=== PATIENT | male | born 1950 | race Caucasian/White ===

== ENCOUNTER 2023-07-25 05:59 | Day surgery (SDC) | payer OTHER, SELFPAY ==
[2023-07-25] VITALS (8 sets, daily range): BP systolic 127–154; BP diastolic 54–91; BMI 43.7
[2023-07-25 06:52] LABS: Hematocrit 44.6 % (39.0-52.0); Hemoglobin 15.6 g/dL (13.0-18.0); Mean Corpuscular Hgb 32.7 pg (27.0-31.0); Mean Corpuscular Volume 93.5 fL (80.0-94.0); Mean Platelet Volume 9.8 fL (7.4-10.4); Platelet Count 215 10^3/uL (130-400); Red Blood Cell Count 4.77 10^6/uL (4.70-6.10); Red Cell Dist. Width 12.8 % (11.5-14.5); White Blood Cell Count 5.4 10^3/uL (4.8-10.8)
[2023-07-25 06:53] LABS: Glucose - Point of Care 144 mg/dl (70-99)
[2023-07-25 07:06] LABS: Blood Urea Nitrogen 32 mg/dl (9-20); Calcium 9.5 mg/dl (8.4-10.2); Carbon Dioxide 28 mmol/L (22-30); Chloride 102 mmol/L (98-107); Estimated Creatinine Clearance 87 ml/min; Glucose 159 mg/dl (70-99); Potassium 3.7 mmol/L (3.5-5.1); Sodium 140 mmol/L (135-145); eGFR > 60.00
--- NOTE | 2023-07-25 09:28 | ITS.CL.CATH ---
[facility] - Catheterization
Cardiac Catheterization
Procedure Report:
RIGHT HEART CATHETERIZATION
Date of Procedure: July 25, 2023
Referring: Dr. Randy Carlos
INDICATION: Shortness of breath
NOTE: Patient found to be in atrial fibrillation today.
Hemodynamics (mmHg):
RA (m) : 16
RV (s/d,m) : 62/12, 16
PA (s/d, m) : 64/24, 39
PCWP (m) : 25
Cardiac Output : 3.4 L/min and Cardiac Index : 1.4 L/min/m-2
Systemic Vascular Resistance: 25.6 Wood units = 2047 dynes*sec*cm-5
Pulmonary Vascular Resistance: 4.1 Wood units = 329 dynes*sec*cm-5
RADIATION SUMMARY: Fluoro Time (min): 2.4, Dose (mGy): 29.5, DAP (Gy.cm2) : 3.7
CONCLUSION:
1. Mildly elevated right and left ventricular filling pressures.
2. Mildly elevated pulmonary vascular resistance
3. Reduced cardiac index
4. Newly diagnosed atrial fibrillation
RECOMMENDATION:
1. Increase furosemide to 80 mg p.o. twice daily
2. Begin oral anticoagulation with Eliquis 5 mg p.o. twice daily and will schedule for JOMAR cardioversion in the next week or two
3. Followup with Dr. Carlos
4. Of note, outpatient medication list has not had amlodipine listed. He takes 5 mg of amlodipine daily and has been on this medication for years
Copy to: Dr. Randy Carlos
[2023-07-25] MEDS: LASIX 80 MG IV (09:55)
[2023-07-25] MEDS: KCL 20 MEQ PO (10:26)
--- NOTE | 2023-07-25 10:43 | CM ---
pricealy tolliver with his pharm [email or web address], his copay is $47/month, free 30 day coupon given . it is in stock.
[2023-07-25] MEDS: ELIQUIS 5 MG PO (11:48)
== END 2023-07-25 12:10 | disposition home or self-care (01) ==
LOC: CATH 05:59
PROVIDERS: ATTENDING PHYSICIAN Internal Medicine Interventional Cardiology; FAMILY PHYSICIAN Family Medicine
DX: R06.02 Shortness of breath (principal); I48.91 Unspecified atrial fibrillation; Z79.01 Long term (current) use of anticoagulants
CPT/HCPCS: 80048; 82962; 85027; 93005; 93451; C1769; C1894

== ENCOUNTER → 2023-08-05 07:09 | Day surgery (SDC) | payer OTHER, SELFPAY | LOC: CATH 07:09 | PROVIDERS: ATTENDING PHYSICIAN Internal Medicine Cardiovascular Disease; FAMILY PHYSICIAN Family Medicine; OTHER PHYSICIAN Internal Medicine Cardiovascular Disease | DX: Z53.09 Procedure and treatment not carried out because of other contraindication (principal); I48.0 Paroxysmal atrial fibrillation; I11.0 Hypertensive heart disease with heart failure; I50.32 Chronic diastolic (congestive) heart failure; E78.5 Hyperlipidemia, unspecified; R06.09 Other forms of dyspnea; R06.02 Shortness of breath; G47.33 Obstructive sleep apnea (adult) (pediatric); E11.9 Type 2 diabetes mellitus without complications; E66.9 Obesity, unspecified; Z68.42 Body mass index [BMI] 45.0-49.9, adult; Z79.4 Long term (current) use of insulin; Z79.84 Long term (current) use of oral hypoglycemic drugs; Z79.85 Long-term (current) use of injectable non-insulin antidiabetic drugs ==

== ENCOUNTER 2023-08-18 16:15 | Outpatient (RCR) | payer OTHER, SELFPAY | END 2023-08-18 23:59 | disposition home or self-care (01) | LOC: PURB 16:15 | PROVIDERS: ATTENDING PHYSICIAN Internal Medicine; FAMILY PHYSICIAN Family Medicine | DX: J45.30 Mild persistent asthma, uncomplicated (principal) | CPT/HCPCS: G0239 ==

== ENCOUNTER → 2023-10-27 06:28 | Day surgery (SDC) | payer OTHER, SELFPAY ==
[2023-10-27 07:03] LABS: Glucose - Point of Care 113 mg/dl (70-99)
== END ==
LOC: GI 06:28
PROVIDERS: ATTENDING PHYSICIAN Internal Medicine Gastroenterology
DX: Z12.11 Encounter for screening for malignant neoplasm of colon (principal); D12.0 Benign neoplasm of cecum; D12.2 Benign neoplasm of ascending colon; D12.5 Benign neoplasm of sigmoid colon; D12.7 Benign neoplasm of rectosigmoid junction; K64.8 Other hemorrhoids
CPT/HCPCS: 45385; 45380; 88305; 82962

== ENCOUNTER → 2024-04-13 12:21 | Outpatient (REF) | payer OTHER, SELFPAY | LOC: RAD 12:21 | PROVIDERS: ATTENDING PHYSICIAN Nurse Practitioner Family | DX: J06.9 Acute upper respiratory infection, unspecified (principal) | CPT/HCPCS: 71046 ==

== ENCOUNTER → 2025-01-21 10:22 | Outpatient (REF) | payer OTHER, SELFPAY | LOC: RAD 10:22 | PROVIDERS: ATTENDING PHYSICIAN Physician Assistant; FAMILY PHYSICIAN Family Medicine | DX: R05.3 Chronic cough (principal); J32.8 Other chronic sinusitis | CPT/HCPCS: 71046 ==

== ENCOUNTER → 2025-01-22 11:52 | Outpatient (REF) | payer OTHER, SELFPAY | LOC: HWRAD 11:52 | PROVIDERS: ATTENDING PHYSICIAN Physician Assistant; FAMILY PHYSICIAN Family Medicine | DX: J32.8 Other chronic sinusitis (principal) | CPT/HCPCS: 70486 ==